=== PATIENT | female | born 1990 | race African-American/Black ===

== ENCOUNTER 2017-08-23 07:34 | Emergency (ER) | payer BC, MEDICAID ==
[2017-08-23 07:40] VITALS: BP 134/86
[2017-08-23] MEDS ORDERED: PSEUDOEPHEDRINE HCL 30 MG TABLET PO ONE (08:20)
[2017-08-23] MEDS ORDERED: AMOXICILLIN TRIHYDRATE 500 MG CAPSULE PO ONE (08:20)
[2017-08-23] MEDS ORDERED: GUAIFENESIN 600 MG TABLET.SA PO ONE (08:22)
--- NOTE | 2017-08-23 08:25 | ER Document Report ---
HPI - HPI Patient complains to provider of: congestion, ear pain Onset: Yesterday Onset/Duration: Gradual Quality of pain: Achy, Sharp Pain Level: 4 Context: Patient presents complaining of sinus congestion and coughing that started yesterday. Patient does complain of sore throat and ear pain. Patient also reports popping fluid sounds from her left ear. Patient denies any fever. Associated Symptoms: Chills, Nonproductive cough, Earache, Rhinnorhea, Sinus pain/drainage, Sore throat. denies: Fever Exacerbated by: Denies Relieved by: Denies Similar symptoms previously: Yes Recently seen / treated by doctor: No - ROS ROS below otherwise negative: Yes Systems Reviewed and Negative: Yes All other systems reviewed and negative - CONSTITUTIONAL Constitutional: DENIES: Fever - EENT EENT: REPORTS: Sore Throat, Ear Pain, Nasal Drainage-Clear, Congestion - RESPIRATORY Respiratory: REPORTS: Coughing. DENIES: Trouble Breathing - GASTROINTESTINAL Gastrointestinal: DENIES: Nausea, Patient vomiting - MUSCULOSKELETAL Musculoskeletal: DENIES: Extremity pain, Back Pain - DERM Skin Color: Normal Skin Problems: None Past Medical History - General Information source: Patient - Social History Smoking Status: Current Some Day Smoker Chew tobacco use (# tins/day): No Frequency of alcohol use: Occasional Drug Abuse: None Occupation: press operator assistant Lives with: Family Family History: Reviewed & Not Pertinent - Medical History Medical History: Other - Anemia - Past Medical History Cardiac Medical History: Denies: Hx Coronary Artery Disease, Hx Heart Attack, Hx Hypertension Pulmonary Medical History: Reports: Hx Asthma - CHILD RASHEED Denies: Hx Bronchitis, Hx COPD, Hx Pneumonia Neurological Medical History: Denies: Hx Cerebrovascular Accident, Hx Seizures Renal/ Medical History: Denies: Hx Peritoneal Dialysis GI Medical History: 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 Denies: Hx Hysterectomy - Immunizations Hx Diphtheria, Pertussis, Tetanus Vaccination: Yes Vertical Provider Document - CONSTITUTIONAL Agree With Documented VS: Yes Exam Limitations: No Limitations General Appearance: WD/WN, No Apparent Distress - INFECTION CONTROL TRAVEL OUTSIDE OF THE [place] IN LAST 30 DAYS: No - HEENT HEENT: Atraumatic, Normocephalic, Pharyngeal Tenderness, Pharyngeal Erythema, Tympanic Membrane Red, Tympanic Membrane Bulging. negative: Pharyngeal Exudate Notes: Serous effusion on the left - NECK Neck: Normal Inspection, Supple. negative: Lymphadenopathy-Left, Lymphadenopathy-Right - RESPIRATORY Respiratory: Breath Sounds Normal, No Respiratory Distress, Chest Non-Tender O2 Sat by Pulse Oximetry: 100 - CARDIOVASCULAR Cardiovascular: Regular Rate, Regular Rhythm, No Murmur - BACK Back: Normal Inspection - MUSCULOSKELETAL/EXTREMETIES Musculoskeletal/Extremeties: MAEW - NEURO Level of Consciousness: Awake, Alert, Appropriate Motor/Sensory: No Motor Deficit - DERM Integumentary: Warm, Dry, No Rash Course - Vital Signs Vital signs: Temp Pulse Resp BP Pulse Ox 97.8 F 89 16 134/86 H 100 08/23/17 07:38 08/23/17 07:38 08/23/17 07:38 08/23/17 07:38 08/23/17 07:38 Discharge - Discharge Clinical Impression: Upper respiratory infection Qualifiers: URI type: unspecified URI Qualified Code(s): J06.9 - Acute upper respiratory infection, unspecified Otitis media Qualifiers: Otitis media type: unspecified Chronicity: acute Laterality: unspecified laterality Qualified Code(s): H66.90 - Otitis media, unspecified, unspecified ear Condition: Stable Disposition: HOME, SELF-CARE Instructions: Amoxicillin ([facility]), Otitis Media ([facility]), Upper Respiratory Illness ([facility]) Additional Instructions: Return immediately for any new or worsening symptoms Followup with your primary care provider, call tomorrow to make a followup appointment Use saline nasal spray to help with sinus congestion Prescriptions: Amoxicillin 500 mg PO TID #30 tablet Fluticasone Propionate [Flonase Nasal Milton 50 Mcg/Milton 16 gm] 2 spray NASL DAILY #1 bottle Guaifenesin/Pseudoephedrne HCl [Mucinex D ER Tablet] 1 each PO Q12 PRN #12 [id number] PRN Reason: Forms: Return to Work Referrals: JENNIFER LYONS NP-C [NO LOCAL MD] - Follow up tomorrow
== END 2017-08-23 08:32 | disposition home or self-care (01) ==
LOC: ER 07:34
DX: H66.90 Otitis media, unspecified, unspecified ear (principal); J02.9 Acute pharyngitis, unspecified; R09.81 Nasal congestion; R05 Cough; J34.89 Other specified disorders of nose and nasal sinuses; F17.200 Nicotine dependence, unspecified, uncomplicated
CPT/HCPCS: 99282